=== PATIENT | female | born 1980 | race African-American/Black ===

== ENCOUNTER 2018-01-19 18:31 | Emergency (ER) | payer OTHER ==
[2018-01-19] MEDS ORDERED: Albuterol/Ipratropium NEB.SOL* Albuterol 2.5 MG/Ipratropium 0.5 MG 3 ML INH ONE (19:18)
[2018-01-19] MEDS ORDERED: Albuterol/Ipratropium NEB.SOL* Albuterol 2.5 MG/Ipratropium 0.5 MG 3 ML ONE (19:26)
--- NOTE | 2018-01-19 19:52 | RAD ---
HISTORY: Inhalational exposure, difficulty breathing COMPARISONS: None VIEWS: 4: Frontal dual-energy and lateral views of the chest. FINDINGS: CARDIOMEDIASTINAL SILHOUETTE: The cardiomediastinal silhouette is normal. GRISELDA: The griselda are normal. PLEURA: The costophrenic angles are sharp. No pleural abnormalities are noted. LUNG PARENCHYMA: The lungs are clear. ABDOMEN: The upper abdomen is clear. There is no subphrenic gas. BONES AND SOFT TISSUES: No bone or soft tissue abnormalities are noted. OTHER: None. IMPRESSION: NO ACTIVE CARDIOPULMONARY DISEASE.
[2018-01-19 20:06] VITALS: BP 115/84
--- NOTE | 2018-01-20 06:15 | ED ---
Beto Monet Nikita, scribed for Sigifredo Han MD on 01/19/18 at 1922 . Respiratory - HPI Summary HPI Summary: This patient is a 37 year old M presenting to ED with a chief complaint of difficulty breathing since accidentally inhaling bleach at 1630 while cleaning. The CC is described as cannot breathe deep down. The patient rates the pain 0/ 10 in severity. Symptoms aggravated by nothing. Symptoms alleviated by fresh air. Patient reports CP. Patient denies sore throat, and N/V. Patient denies hx of COPD or asthma. - History of Current Complaint Chief Complaint: EDChemNuclearExpose Stated Complaint: INHALED CHEMICALS/DIFF BREATHING Time Seen by Provider: 01/19/18 19:01 Hx Obtained From: Patient Onset/Duration: Sudden Onset, Lasting Hours, Still Present Current Severity: None Pain Intensity: 0 Aggravating Factor(s): Nothing Alleviating Factor(s): Other - fresh air Associated Signs and Symptoms: Chest Pain - denies sore throat, and N/V - Allergy/Home Medications Allergies/Adverse Reactions: Allergies Allergy/AdvReac Type Severity Reaction Status Date / Time No Known Allergies Allergy Verified 01/19/18 18:38 PMH/Surg Hx/FS Hx/Imm Hx Endocrine/Hematology History: Denies: Hx Diabetes Cardiovascular History: Denies: Hx Coronary Artery Disease, Hx Hypertension Respiratory History: Denies: Hx Asthma, Hx Chronic Obstructive Pulmonary Disease (COPD) Infectious Disease History: No Infectious Disease History: Denies: Traveled Outside the [place] in Last 30 Days - Social History Alcohol Use: None Substance Use Type: Reports: None Smoking Status (MU): Never Smoked Tobacco Review of Systems Negative: Sore Throat Positive: Chest Pain Positive: Other - difficulty breathing Negative: Vomiting, Nausea All Other Systems Reviewed And Are Negative: Yes Physical Exam - Summary Physical Exam Summary: Appearance: Well appearing, no pain distress Skin: warm, dry, reflects adequate perfusion Head/face: normal Eyes: EOMI, TOMA ENT: normal, mucous membranes moist Neck: supple, non-tender Respiratory: CTA, breath sounds present Cardiovascular: RRR, pulses symmetrical Abdomen: non-tender, soft Bowel: present Musculoskeletal: normal, strength/ROM intact Neuro: normal, sensory motor intact, A&Ox3 Triage Information Reviewed: Yes Vital Signs On Initial Exam: Initial Vitals Temp Pulse Resp BP Pulse Ox 98.7 F 94 16 115/89 99 01/19/18 18:35 01/19/18 18:35 01/19/18 18:35 01/19/18 18:35 01/19/18 18:35 Vital Signs Reviewed: Yes Diagnostics - Vital Signs Vital Signs Temp Pulse Resp BP Pulse Ox 01/19/18 18:35 98.7 F 94 16 115/89 99 - Laboratory Lab Statement: Any lab studies that have been ordered have been reviewed, and results considered in the medical decision making process. - Radiology CXR Radiology Interpretation Completed By: ED Physician - CXR is normal. Re-Evaluation - Re-Evaluation First Eval Re-Evaluation Time: 19:52 Comment: Patient feels better. Disposition - Course Course Of Treatment: min exposure to bleach. Lungs clear and sats well. No pneumonitis on xray. [place] better with neb. D/C in good condition. - Differential Dx - Cardiopulmonary Differential Diagnoses - Cardiopulmonary: Other - inhaled fumes - Diagnoses Provider Diagnoses: inhaled fumes Discharge - Discharge Plan Condition: Good Disposition: HOME Patient Education Materials: Pneumonitis (ED) Referrals: Eliecer Tuttle MD [Primary Care Provider] - Additional Instructions: There is no evidence of Pneumonitis as instructions talk about. If you have those symptoms -- shortness of breath increasing, coughing, etc please return to the ER for evaluation. The documentation as recorded by the Beto beckwith Nikita accurately reflects the service I personally performed and the decisions made by me, Sigifredo Han MD.
== END 2018-01-19 20:05 | disposition home or self-care (01) ==
LOC: ED 18:31
DX: T54.91XA Toxic effect of unspecified corrosive substance, accidental (unintentional), initial encounter (principal); R07.9 Chest pain, unspecified; Y92.89 Other specified places as the place of occurrence of the external cause
CPT/HCPCS: 71046; 99282; A9270-GY

== ENCOUNTER 2018-11-17 19:31 | Emergency (ER) | payer OTHER ==
[2018-11-17 19:41] VITALS: BP 134/72
--- NOTE | 2018-11-17 19:53 | UC ---
Complaint Female HPI - HPI Summary HPI Summary: unprotected sex with a person who has had multiple sex partners 2-3 weeks ago wants std testing---patient is not accepting of education regarding cc. she dienies symptoms and states she is having her periord now-I did continue to explain to her that she will need follow up testing in 3-5weeks - History Of Current Complaint Chief Complaint: UCSTDScreening Stated Complaint: STI TESTING Time Seen by Provider: 11/17/18 19:32 Hx Obtained From: Patient Hx Last Menstrual Period: 11/17/18 ?: No Onset/Duration: Sudden Onset Timing: Constant Pain Intensity: 0 Pain Scale Used: 0-10 Numeric Character: Not Applicable Aggravating Factor(s): Nothing Alleviating Factor(s): Nothing Associated Signs And Symptoms: Negative: Genital Swelling, Genital Blisters - Allergies/Home Medications Allergies/Adverse Reactions: Allergies Allergy/AdvReac Type Severity Reaction Status Date / Time No Known Allergies Allergy Verified 11/17/18 19:35 Home Medications: Home Medications Phendimetrazine Tartrate 35 mg PO TID 11/17/18 [History Confirmed 11/17/18] PMH/Surg Hx/FS Hx/Imm Hx Previously Healthy: Yes - Surgical History Surgical History: Yes Surgery Procedure, Year, and Place: gallbladder removal 2006 - Family History Known Family History: Positive: None - Social History Occupation: Employed Full-time Lives: With Family Alcohol Use: Occasionally Substance Use Type: None Smoking Status (MU): Heavy Every Day Tobacco Smoker Amount Used/How Often: 2PP/week Review of Systems All Other Systems Reviewed And Are Negative: Yes Constitutional: Positive: Negative Skin: Positive: Negative Eyes: Positive: Negative ENT: Positive: Negative Respiratory: Positive: Negative Cardiovascular: Positive: Negative Gastrointestinal: Positive: Negative Genitourinary: Positive: Negative Motor: Positive: Negative Neurovascular: Positive: Negative Musculoskeletal: Positive: Negative Neurological: Positive: Negative Psychological: Positive: Negative Is Patient Immunocompromised?: No Physical Exam Triage Information Reviewed: Yes Appearance: Well-Appearing, No Pain Distress, Well-Nourished Vital Signs: Initial Vital Signs Temp 98.4 F 11/17/18 19:36 Pulse 101 11/17/18 19:36 Resp 18 11/17/18 19:36 BP 134/72 11/17/18 19:36 Pulse Ox 100 11/17/18 19:36 Vital Signs Reviewed: Yes Eye Exam: Normal Eyes: Positive: Conjunctiva Clear ENT Exam: Normal ENT: Positive: Normal ENT inspection, Hearing grossly normal. Negative: Trismus , Muffled voice, Hoarse voice Dental Exam: Normal Neck exam: Normal Neck: Positive: Supple, Nontender Respiratory Exam: Normal Respiratory: Positive: No respiratory distress, No accessory muscle use Cardiovascular Exam: Normal Musculoskeletal Exam: Normal Musculoskeletal: Positive: Strength Intact, ROM Intact Neurological Exam: Normal Neurological: Positive: Alert, Muscle Tone Normal Psychological Exam: Normal Skin Exam: Normal Complaint Female Dx - Course Course Of Treatment: will test for syphyllis, gonnorrhea, chylmadia, hepatitis, b &c and hiv- patient wishes not to have a pelvic exam-- - Differential Dx/Diagnosis Provider Diagnosis: Encounter for assessment of STD exposure Discharge - Sign-Out/Discharge Documenting (check all that apply): Patient Departure All imaging exams completed and their final reports reviewed: No Studies - Discharge Plan Condition: Stable Disposition: HOME Patient Education Materials: Safe Sex (ED) Referrals: Eliecer Tuttle MD [Primary Care Provider] [facility] (for [facility] in 3-5 weeks) - Billing Disposition and Condition Condition: STABLE Disposition: Home
[2018-11-20 10:57] LABS: Hepatitis B Surface Antigen Nonreactive (Nonreactive)
[2018-11-20 11:04] LABS: Hepatitis B Surface AB Not Immune (Immune)
[2018-11-20 11:25] LABS: Hepatitis C Antibody Nonreactive (Nonreactive)
== END 2018-11-17 20:20 | disposition home or self-care (01) ==
LOC: UCEAST 19:31
DX: Z20.2 Contact with and (suspected) exposure to infections with a predominantly sexual mode of transmission (principal)
CPT/HCPCS: 36415; 81003; 86592; 86703; 86706; 86803; 87340; 87491; 87591; 99211; G0463

== ENCOUNTER 2019-02-03 21:01 | Emergency (ER) | payer OTHER ==
[2019-02-03 22:28] LABS: ABS Basophils 0.1 10^3/ul (0-0.2); ABS Eosinophils 0.3 10^3/ul (0-0.6); ABS Lymphocytes 2.4 10^3/ul (1.0-4.8); ABS Monocytes 0.6 10^3/ul (0-0.8); ABS Neutrophils 5.3 10^3/ul (1.5-7.7); ABS Nucleated RBC 0 10^3/ul; Eosinophil % 3.3 %; Hematocrit 42 % (33-41); Hemoglobin 14.3 g/dL (12.0-16.0); Lymphocyte % 28.1 %; Mean Corpuscular HGB Conc 34 g/dL (31-36); Mean Corpuscular Hemoglobin 30 pg (27-31); Mean Corpuscular Volume 90 fL (80-97); Mean Platelet Volume 7.2 fL (7.4-10.4); Nucleated Red Blood Cells % 0; Platelet Count 325 10^3/uL (150-450); Red Blood Count 4.71 10^6 /uL (3.70-4.87); Red Cell Distribution Width 14 % (10.5-15); White Blood Count 8.7 10^3/uL (3.5-10.8)
[2019-02-03 22:48] LABS: Albumin 4.4 g/dL (3.2-5.2); Albumin/Globulin Ratio 1.6 (1-3); BUN/Creatinine Ratio 20.9 (8-20); C Reactive Protein 3.85 mg/L (<8.01); Calcium 9.2 mg/dL (8.6-10.3); EGFR African American 84.2 (>60); EGFR Non-African American 69.6 (>60); Globulin 2.8 g/dL (2-4); Potassium 3.8 mmol/L (3.5-5.0); Total Bilirubin 0.4 mg/dL (0.2-1.0); Total Protein 7.2 g/dL (6.4-8.9)
[2019-02-03 22:55] LABS: HCG Pregnancy 0.77 mIU/mL
[2019-02-04 00:41] LABS: Urine Appearance Cloudy; Urine Bacteria Absent (Absent); Urine Bilirubin Negative (Negative); Urine Blood 2+ (Negative); Urine Color Yellow; Urine Glucose Negative (Negative); Urine Ketones Trace (Negative); Urine Nitrite Negative (Negative); Urine Protein Negative (Negative); Urine Red Blood Cell 3+(>10/hpf) (Absent); Urine Specific Gravity 1.028 (1.010-1.030); Urine Squamous Epithelial Cell Present (Absent); Urine Urobilinogen Positive (Negative); Urine White Blood Cell Trace(0-5/hpf) (Absent)
--- NOTE | 2019-02-04 00:58 | ED ---
GI/ HPI - HPI Summary HPI Summary: 38 year old female presents with left lower quadrant pain for the past day. States her period has been lasting longer than normal. She states she's been bleeding for over a week. Denies any dizziness. She did have nausea but that resolved. No vomiting. No urinary symptoms. No flank pain. Denies any abnormal vaginal discharge. Denies any chance of pelvic infection. no diarrhea. no history of diverticulitis. has been constipated. - History of Current Complaint Chief Complaint: EDAbdPain Time Seen by Provider: 02/03/19 23:47 Stated Complaint: PRESSURE IN STOMACH- PER PT Hx Last Menstrual Period: 11/17/18 Pain Intensity: 3 - Allergy/Home Medications Allergies/Adverse Reactions: Allergies Allergy/AdvReac Type Severity Reaction Status Date / Time No Known Allergies Allergy Verified 11/17/18 19:35 Home Medications: Home Medications NK [No Home Medications Reported] 02/04/19 [History Confirmed 02/04/19] PMH/Surg Hx/FS Hx/Imm Hx Endocrine/Hematology History: Denies: Hx Diabetes Cardiovascular History: Denies: Hx Coronary Artery Disease, Hx Hypertension Respiratory History: Reports: Hx Asthma Denies: Hx Chronic Obstructive Pulmonary Disease (COPD) - Surgical History Surgery Procedure, Year, and Place: gallbladder removal 2006 Infectious Disease History: No Infectious Disease History: Denies: Traveled Outside the [place] in Last 30 Days - Family History Known Family History: Positive: None - Social History Alcohol Use: Occasionally Substance Use Type: Reports: None Smoking Status (MU): Heavy Every Day Tobacco Smoker Amount Used/How Often: 2PP/week Review of Systems Negative: Fever Negative: Chest Pain Negative: Shortness Of Breath Positive: Abdominal Pain. Negative: Vomiting, Diarrhea, Nausea Negative: dysuria All Other Systems Reviewed And Are Negative: Yes Physical Exam Triage Information Reviewed: Yes Vital Signs On Initial Exam: Initial Vitals Temp Pulse Resp BP Pulse Ox 98.3 F 104 18 126/74 100 02/03/19 21:06 02/03/19 21:06 02/03/19 21:06 02/03/19 21:06 02/03/19 21:06 Vital Signs Reviewed: Yes Appearance: Positive: Well-Appearing Skin: Positive: Warm, Dry Head/Face: Positive: Normal Head/Face Inspection Eyes: Positive: Normal, Conjunctiva Clear ENT: Positive: Pharynx normal Respiratory/Lung Sounds: Positive: Clear to Auscultation, Breath Sounds Present Cardiovascular: Positive: Normal, RRR Abdomen Description: Positive: Soft, Other: - mild tenderness LLQ, no rebound Bowel Sounds: Positive: Absent Musculoskeletal: Positive: Normal Neurological: Positive: Normal Psychiatric: Positive: Normal Diagnostics - Vital Signs Vital Signs Temp Pulse Resp BP Pulse Ox 02/03/19 21:06 98.3 F 104 18 126/74 100 - Laboratory Lab Results: Lab Results 02/03/19 02/03/19 02/03/19 Range/Units 22:21 22:21 22:21 WBC 8.7 (3.5-10.8) 10^3/uL RBC 4.71 (3.70-4.87) 10^6 /uL Hgb 14.3 (12.0-16.0) g/dL Hct 42 H (33-41) % MCV 90 (80-97) fL MCH 30 (27-31) pg MCHC 34 (31-36) g/dL RDW 14 (10.5-15) % Plt Count 325 (150-450) 10^3/uL MPV 7.2 L (7.4-10.4) fL Neut % (Auto) 60.6 % Lymph % (Auto) 28.1 % [place] % (Auto) 6.8 % Eos % (Auto) 3.3 % Baso % (Auto) 1.2 % Absolute Neuts (auto) 5.3 (1.5-7.7) 10^3/ul Absolute Lymphs (auto) 2.4 (1.0-4.8) 10^3/ul Absolute Monos (auto) 0.6 (0-0.8) 10^3/ul Absolute Eos (auto) 0.3 (0-0.6) 10^3/ul Absolute Basos (auto) 0.1 (0-0.2) 10^3/ul Absolute Nucleated RBC 0 10^3/ul Nucleated RBC % 0 Sodium 138 (135-145) mmol/L Potassium 3.8 (3.5-5.0) mmol/L Chloride 106 (101-111) mmol/L Carbon Dioxide 26 (22-32) mmol/L Anion Gap 6 (2-11) mmol/L BUN 19 (6-24) mg/dL Creatinine 0.91 (0.51-0.95) mg/dL Est GFR ( Amer) 84.2 (>60) Est GFR (Non-Af Amer) 69.6 (>60) BUN/Creatinine Ratio 20.9 H (8-20) Glucose 92 (70-100) mg/dL Lactic Acid 0.8 (0.5-2.0) mmol/L Calcium 9.2 (8.6-10.3) mg/dL Total Bilirubin 0.40 (0.2-1.0) mg/dL AST 15 (13-39) U/L ALT 11 (7-52) U/L Alkaline Phosphatase 96 (34-104) U/L C-Reactive Protein 3.85 (<8.01) mg/L Total Protein 7.2 (6.4-8.9) g/dL Albumin 4.4 (3.2-5.2) g/dL Globulin 2.8 (2-4) g/dL Albumin/Globulin Ratio 1.6 (1-3) Lipase 62 (11.0-82.0) U/L Beta HCG, Quant 0.77 mIU/mL Urine Color Urine Appearance Urine pH (5-9) Ur Specific [place] (1.010-1.030) Urine Protein (Negative) Urine Ketones (Negative) Urine Blood (Negative) Urine Nitrate (Negative) Urine Bilirubin (Negative) Urine Urobilinogen (Negative) Ur Leukocyte Esterase (Negative) Urine WBC (Auto) (Absent) Urine RBC (Auto) (Absent) Ur Squamous Epith Cells (Absent) Urine Bacteria (Absent) Urine Glucose (Negative) 02/04/19 Range/Units 00:30 WBC (3.5-10.8) 10^3/uL RBC (3.70-4.87) 10^6 /uL Hgb (12.0-16.0) g/dL Hct (33-41) % MCV (80-97) fL MCH (27-31) pg MCHC (31-36) g/dL RDW (10.5-15) % Plt Count (150-450) 10^3/uL MPV (7.4-10.4) fL Neut % (Auto) % Lymph % (Auto) % [place] % (Auto) % Eos % (Auto) % Baso % (Auto) % Absolute Neuts (auto) (1.5-7.7) 10^3/ul Absolute Lymphs (auto) (1.0-4.8) 10^3/ul Absolute Monos (auto) (0-0.8) 10^3/ul Absolute Eos (auto) (0-0.6) 10^3/ul Absolute Basos (auto) (0-0.2) 10^3/ul Absolute Nucleated RBC 10^3/ul Nucleated RBC % Sodium (135-145) mmol/L Potassium (3.5-5.0) mmol/L Chloride (101-111) mmol/L Carbon Dioxide (22-32) mmol/L Anion Gap (2-11) mmol/L BUN (6-24) mg/dL Creatinine (0.51-0.95) mg/dL Est GFR ( Amer) (>60) Est GFR (Non-Af Amer) (>60) BUN/Creatinine Ratio (8-20) Glucose (70-100) mg/dL Lactic Acid (0.5-2.0) mmol/L Calcium (8.6-10.3) mg/dL Total Bilirubin (0.2-1.0) mg/dL AST (13-39) U/L ALT (7-52) U/L Alkaline Phosphatase (34-104) U/L C-Reactive Protein (<8.01) mg/L Total Protein (6.4-8.9) g/dL Albumin (3.2-5.2) g/dL Globulin (2-4) g/dL Albumin/Globulin Ratio (1-3) Lipase (11.0-82.0) U/L Beta HCG, Quant mIU/mL Urine Color Yellow Urine Appearance Cloudy Urine pH 6.0 (5-9) Ur Specific [place] 1.028 (1.010-1.030) Urine Protein Negative (Negative) Urine Ketones Trace A (Negative) Urine Blood 2+ A (Negative) Urine Nitrate Negative (Negative) Urine Bilirubin Negative (Negative) Urine Urobilinogen Positive A (Negative) Ur Leukocyte Esterase Trace A (Negative) Urine WBC (Auto) Trace(0-5/hpf) (Absent) Urine RBC (Auto) 3+(>10/hpf) A (Absent) Ur Squamous Epith Cells Present A (Absent) Urine Bacteria Absent (Absent) Urine Glucose Negative (Negative) Result Diagrams: 02/03/19 22:21 02/03/19 22:21 Lab Statement: Any lab studies that have been ordered have been reviewed, and results considered in the medical decision making process. - Ultrasound No standard instances Ultrasound Interpretation Completed By: Radiologist Summary of Ultrasound Findings: IMPRESSION: 1. Leiomyomatous uterus. 2. Sonographically normal ovaries. GIGU Course/Dx - Course Course Of Treatment: 38 year old female presents with left lower quadrant pain for the past day. States her period has been lasting longer than normal. She states she's been bleeding for over a week. Denies any dizziness. She did have nausea but that resolved. No vomiting. No urinary symptoms. No flank pain. Denies any abnormal vaginal discharge. Denies any chance of pelvic infection. On exam minimal tenderness left lower quadrant. wbc normal. CRP normal. Urine likely contaminant. Ultrasound shows leiomomatous uterus. told to follow up with bread icer. patient understand and agrees with plan. - Diagnoses Differential Diagnoses - Female: Ovarian Cyst, STD, Urinary Tract Infection Provider Diagnoses: Abdominal pain Discharge - Sign-Out/Discharge Documenting (check all that apply): Patient Departure Patient Received Moderate/Deep Sedation with Procedure: No - Discharge Plan Condition: Good Disposition: HOME Patient Education Materials: Pelvic Pain in Women (ED) Referrals: Eliecer Tuttle MD [Primary Care Provider] - Additional Instructions: Take Tylenol or ibuprofen every 6 hours for pain apply heat to area Follow up with obgyn Return to ED if develop any new or worsening symptoms - Billing Disposition and Condition Condition: GOOD Disposition: Home
[2019-02-04 01:32] VITALS: BP 113/78
== END 2019-02-04 01:30 | disposition home or self-care (01) ==
LOC: ED 21:01
DX: R10.32 Left lower quadrant pain (principal); R10.2 Pelvic and perineal pain; F17.210 Nicotine dependence, cigarettes, uncomplicated; D25.9 Leiomyoma of uterus, unspecified
CPT/HCPCS: 36415; 76830; 80053; 81003; 81015; 83605; 83690; 84702; 85025; 86140; 87086; 99282

== ENCOUNTER 2019-08-03 17:57 | Emergency (ER) | payer OTHER ==
[2019-08-03 18:27] VITALS: BP 110/72
--- NOTE | 2019-08-03 18:43 | UC ---
Complaint Female HPI - HPI Summary HPI Summary: Vaginal bleeding assoc w/ back pain which started today. Had menses 1 wk ago. Last intercourse 10/2018. Not on control. of note her mom had menopause at age 40. - History Of Current Complaint Chief Complaint: UCGU Stated Complaint: VAGINAL BLEEDING, BACK PAIN Time Seen by Provider: 08/03/19 18:37 Hx Obtained From: Patient Hx Last Menstrual Period: 1 week ago Pain Intensity: 6 Pain Scale Used: 0-10 Numeric Aggravating Factor(s): Nothing Alleviating Factor(s): Nothing - Allergies/Home Medications Allergies/Adverse Reactions: Allergies Allergy/AdvReac Type Severity Reaction Status Date / Time No Known Allergies Allergy Verified 08/03/19 18:27 Home Medications: Home Medications Flaxseed Oil [Holden-3 Flaxseed Oil] 1,000 mg PO DAILY 08/03/19 [History Confirmed 08/03/19] Phendimetrazine Tartrate [Phendimetrazine Tartrate ER] 1 tab PO DAILY 08/03/19 [ History Confirmed 08/03/19] PMH/Surg Hx/FS Hx/Imm Hx Previously Healthy: Yes - Surgical History Surgical History: Yes Surgery Procedure, Year, and Place: gallbladder removal 2006 - Family History Known Family History: Positive: None - Social History Alcohol Use: Rare Substance Use Type: None Smoking Status (MU): Heavy Every Day Tobacco Smoker Amount Used/How Often: 2PP/week Review of Systems All Other Systems Reviewed And Are Negative: Yes Constitutional: Negative: Fever, Fatigue Skin: Negative: Bruising ENT: Negative: Epistaxis Genitourinary: Positive: Abnormal Bleeding. Negative: Dysuria, Vaginal/Penile Burning, Vaginal/Penile Itching, Vaginal/Penile Discharge Musculoskeletal: Positive: Arthralgia - back pain Physical Exam Triage Information Reviewed: Yes Appearance: Well-Appearing Vital Signs: Initial Vital Signs Temp 98 F 08/03/19 18:23 Pulse 81 08/03/19 18:23 Resp 14 08/03/19 18:23 BP 110/72 08/03/19 18:23 Pulse Ox 100 08/03/19 18:23 Vital Signs Reviewed: Yes Respiratory: Positive: No respiratory distress Pelvic Exam: Positive: External Exam Normal, Active Bleeding - pinkish discharge from cervical opening. Negative: No Cerv. Motion Tender, Cervicitis, Lesions, Ulcers Complaint Female Dx - Course Course Of Treatment: Vaginal spotting started today 1 week after already having period. ON exam there was pinkish discharge but no obvious vaginal wall source but did see cervical opening where pink discharge was coming from. Urine hcg neg and will await chlam/nicki results. could be an element of premenopause although maybe not. She could also have a thyroid imbalance causing this which I asked her to go to pcp to cont. w/u. Do not think back pain connected to this but advised to take tylenol or nsaids for this. - Differential Dx/Diagnosis Differential Diagnosis/HQI/PQRI: Pelvic Inflammatory Disease, Sexually Transmitted Disease, Urinary Tract Infection, Other Provider Diagnosis: Vaginal spotting Discharge ED - Sign-Out/Discharge Documenting (check all that apply): Patient Departure All imaging exams completed and their final reports reviewed: No Studies - Discharge Plan Condition: Good Disposition: HOME Patient Education Materials: Dysfunctional Uterine Bleeding (ED) Referrals: Eliecer Tuttle MD [Primary Care Provider] - Additional Instructions: Please follow up with your primary care to possibly get worked up for thyroid issues or perhaps get ultrasound. - Billing Disposition and Condition Condition: GOOD Disposition: Home
[2019-08-05 12:35] LABS: Chlamydia trachomatis NAA Negative (Negative); Neisseria gonorrhoeae (GC) NAA Negative (Negative)
== END 2019-08-03 19:28 | disposition home or self-care (01) ==
LOC: UCEAST 17:57
DX: M54.9 Dorsalgia, unspecified (principal); N89.8 Other specified noninflammatory disorders of vagina; F17.210 Nicotine dependence, cigarettes, uncomplicated
CPT/HCPCS: 84702; 87491; 87591; 99212; G0463

== ENCOUNTER 2019-08-04 13:40 | Emergency (ER) | payer OTHER ==
[2019-08-04 16:01] VITALS: BP 124/48
[2019-08-04 17:19] LABS: ABS Basophils 0.1 10^3/ul (0-0.2); ABS Eosinophils 0.2 10^3/ul (0-0.6); ABS Lymphocytes 2.2 10^3/ul (1.0-4.8); ABS Monocytes 0.3 10^3/ul (0-0.8); ABS Neutrophils 2.6 10^3/ul (1.5-7.7); Eosinophil % 3.6 %; Hematocrit 44 % (35-47); Hemoglobin 14.7 g/dL (12.0-16.0); Lymphocyte % 40.7 %; Mean Corpuscular HGB Conc 34 g/dL (31-36); Mean Corpuscular Hemoglobin 30 pg (27-31); Mean Corpuscular Volume 90 fL (80-97); Mean Platelet Volume 7.4 fL (7.4-10.4); Nucleated Red Blood Cells % 0.1; Platelet Count 244 10^3/uL (150-450); Red Blood Count 4.86 10^6 /uL (3.70-4.87); Red Cell Distribution Width 14 % (10-15); White Blood Count 5.4 10^3/uL (3.5-10.8)
[2019-08-04 17:39] LABS: INR 0.94 (0.82-1.09)
[2019-08-04 17:44] LABS: Albumin 4.5 g/dL (3.2-5.2); Albumin/Globulin Ratio 1.7 (1-3); BUN/Creatinine Ratio 11.3 (8-20); Calcium 9.4 mg/dL (8.6-10.3); EGFR African American 112.1 (>60); EGFR Non-African American 92.6 (>60); Globulin 2.7 g/dL (2-4); Potassium 3.8 mmol/L (3.5-5.0); Total Bilirubin 0.7 mg/dL (0.2-1.0); Total Protein 7.2 g/dL (6.4-8.9)
== END 2019-08-04 17:03 | disposition left against medical advice (07) ==
LOC: ED 13:40
DX: Z53.21 Procedure and treatment not carried out due to patient leaving prior to being seen by health care provider (principal); Z79.899 Other long term (current) drug therapy
CPT/HCPCS: 36415; 80053; 85025; 85610; 99282

== ENCOUNTER 2019-08-05 12:23 | Emergency (ER) | payer OTHER ==
--- NOTE | 2019-08-05 13:55 | ED ---
GI/ HPI - HPI Summary HPI Summary: 38-year-old female presents with lower abdominal pain today. States she had vaginal bleeding last week that has resolved. Feels similar to her period. She also states that she had neck pain yesterday that resolved. No chest pain or shortness breath. States she has some numbness in her arms yesterday. The numbness has resolved. denies any headache. has full ROM of neck and arms. Denies any fevers. No urinary symptoms. No abnormal vaginal discharge. No diarrhea constipation. Denies any nausea vomiting. - History of Current Complaint Chief Complaint: EDAbdPain Time Seen by Provider: 08/05/19 13:18 Stated Complaint: CRAMPING IN STOMACH PER PT Hx Last Menstrual Period: 1 week ago Pain Intensity: 3 - Allergy/Home Medications Allergies/Adverse Reactions: Allergies Allergy/AdvReac Type Severity Reaction Status Date / Time No Known Allergies Allergy Verified 08/04/19 13:48 Home Medications: Home Medications L.acidoph,Paracasei, B.lactis [Probiotic] 1 each PO DAILY 08/05/19 [History Confirmed 08/05/19] PMH/Surg Hx/FS Hx/Imm Hx Endocrine/Hematology History: Denies: Hx Diabetes, Hx Thyroid Disease Cardiovascular History: Denies: Hx Coronary Artery Disease, Hx Hypertension Respiratory History: Reports: Hx Asthma Denies: Hx Chronic Obstructive Pulmonary Disease (COPD) GI History: Denies: Hx Ulcer - Surgical History Surgery Procedure, Year, and Place: gallbladder removal 2006 Infectious Disease History: No Infectious Disease History: Denies: Hx Hepatitis, Hx Human Immunodeficiency Virus (HIV), Traveled Outside the [place] in Last 30 Days - Family History Known Family History: Positive: None - Social History Alcohol Use: Rare Substance Use Type: Reports: None Smoking Status (MU): Heavy Every Day Tobacco Smoker Amount Used/How Often: 2PP/week Review of Systems Negative: Fever Negative: Chest Pain Negative: Shortness Of Breath Positive: Abdominal Pain Positive: Myalgia - neck pain resolved All Other Systems Reviewed And Are Negative: Yes Physical Exam Triage Information Reviewed: Yes Vital Signs On Initial Exam: Initial Vitals Temp Pulse Resp BP Pulse Ox 97.3 F 87 18 112/84 96 08/05/19 12:27 08/05/19 12:27 08/05/19 12:27 08/05/19 12:27 08/05/19 12:27 Vital Signs Reviewed: Yes Appearance: Positive: Well-Appearing Skin: Positive: Warm, Dry Head/Face: Positive: Normal Head/Face Inspection Eyes: Positive: Normal, Conjunctiva Clear ENT: Positive: Pharynx normal Neck: Positive: Other: - nontender neck, full ROM neck Respiratory/Lung Sounds: Positive: Clear to Auscultation, Breath Sounds Present Cardiovascular: Positive: Normal, RRR Abdomen Description: Positive: Soft, Other: - tenderness mild LLQ Bowel Sounds: Positive: Present Musculoskeletal: Positive: Strength/ROM Intact - upper extremity, Other - good pulses, sensation grossly intact Neurological: Positive: Normal Psychiatric: Positive: Normal Diagnostics - Vital Signs Vital Signs Temp Pulse Resp BP Pulse Ox 08/05/19 12:27 97.3 F 87 18 112/84 96 - Laboratory Result Diagrams: 08/05/19 13:41 Lab Statement: Any lab studies that have been ordered have been reviewed, and results considered in the medical decision making process. - Ultrasound No standard instances Ultrasound Interpretation Completed By: Radiologist Summary of Ultrasound Findings: SUBMUCOSAL FIBROIDS WITH DEFORMATION OF THE ENDOMETRIAL STRIPE.. NO SONOGRAPHIC FEATURES OF TORSION. PLEASE NOTE THAT PARTIAL OR INTERMITTENT TORSION MAY BE SONOGRAPHICALLY NORMAL GIGU Course/Dx - Course Course Of Treatment: 38-year-old female presents with lower abdominal pain today. States she had vaginal bleeding last week that has resolved. Feels similar to her period. She also states that she had neck pain yesterday that resolved. No chest pain or shortness breath. States she has some numbness in her arms yesterday. The numbness has resolved. denies any headache. has full ROM of neck and arms. Denies any fevers. No urinary symptoms. No abnormal vaginal discharge. No diarrhea constipation. Denies any nausea vomiting. On exam has full range of motion neck and arms. Neurovascular intact. Mild left lower quadrant tenderness. had lab work done yesterday that was normal but that patient did not stay for results. wbc today is normal. tsh normal. u/s shows fibriods. as symptoms are occasionally discussed should follow up with director of solutions architecture if symptoms persist. discussed take ibuprofen. patient does not have neck pain or arm numbness now so likely was muscular. told follow up with primary. patient understand and agrees with plan. - Diagnoses Differential Diagnoses - Female: Ovarian Cyst, Urinary Tract Infection, Other - dysmenorrhea Provider Diagnoses: Abdominal pain, Neck pain, Fibroid Discharge ED - Sign-Out/Discharge Documenting (check all that apply): Patient Departure Patient Received Moderate/Deep Sedation with Procedure: No - Discharge Plan Condition: Good Disposition: HOME Patient Education Materials: Pelvic Pain in Women (ED) Forms: *Work Release Referrals: Eliecer Tuttle MD [Primary Care Provider] - Maite Haley MD [Medical Doctor] - Additional Instructions: take ibuprofen for pain every 6 hours apply heat Follow up with director of solutions architecture or primary Return to ED if develop any new or worsening symptoms - Billing Disposition and Condition Condition: GOOD Disposition: Home - Attestation Statements Provider Attestation: I was available for consult. This patient was seen by the HUSAM. The patient was not presented to, seen by, or examined by me. Joshua Bush MD
[2019-08-05 13:56] LABS: ABS Basophils 0.1 10^3/ul (0-0.2); ABS Eosinophils 0.2 10^3/ul (0-0.6); ABS Lymphocytes 1.7 10^3/ul (1.0-4.8); ABS Monocytes 0.3 10^3/ul (0-0.8); ABS Neutrophils 2.2 10^3/ul (1.5-7.7); Eosinophil % 3.5 %; Hematocrit 42 % (35-47); Lymphocyte % 37.8 %; Mean Corpuscular HGB Conc 34 g/dL (31-36); Mean Corpuscular Hemoglobin 30 pg (27-31); Mean Corpuscular Volume 90 fL (80-97); Mean Platelet Volume 7.9 fL (7.4-10.4); Nucleated Red Blood Cells % 0.1; Platelet Count 230 10^3/uL (150-450); Red Cell Distribution Width 14 % (10-15); White Blood Count 4.5 10^3/uL (3.5-10.8)
[2019-08-05 14:21] LABS: HCG Pregnancy 0.6 mIU/mL
[2019-08-05 14:29] LABS: C Reactive Protein 1.61 mg/L (<8.01); Magnesium 1.9 mg/dL (1.9-2.7)
[2019-08-05 14:30] LABS: TSH (Thyroid Stimulating Horm) 0.91 mcIU/mL (0.34-5.60)
[2019-08-05 14:49] LABS: Urine Appearance Cloudy; Urine Bilirubin Negative (Negative); Urine Blood Negative (Negative); Urine Color Yellow; Urine Glucose Negative (Negative); Urine Ketones Trace (Negative); Urine Nitrite Negative (Negative); Urine Protein Negative (Negative); Urine Specific Gravity 1.027 (1.010-1.030); Urine Urobilinogen Negative (Negative)
[2019-08-05 16:13] VITALS: BP 129/84
== END 2019-08-05 16:13 | disposition home or self-care (01) ==
LOC: ED 12:23
DX: R10.32 Left lower quadrant pain (principal); D25.0 Submucous leiomyoma of uterus; M54.2 Cervicalgia; Z90.49 Acquired absence of other specified parts of digestive tract; F17.200 Nicotine dependence, unspecified, uncomplicated
CPT/HCPCS: 36415; 76830; 81003; 83735; 84443; 84702; 85025; 86140; 99282

== ENCOUNTER 2024-10-30 08:37 | Observation (INO) ==
[2024-10-30] MEDS ORDERED: Clindamycin 900 MG/50 **NS BAG 900 MG/50 ML BAG ONE (10:16)
[2024-10-30] MEDS ORDERED: Ondansetron 4 mg VIAL 2 MG/ML 2 ml VIAL ONE (10:16)
[2024-10-30] MEDS ORDERED: oxyCODONE SR 10 mg TAB ONE (10:16)
[2024-10-30] MEDS ORDERED: Scopolamine 1 mg/72hr PATCH ONE (10:16)
[2024-10-30 10:25] LABS: ABS Basophils 0.1 10^3/uL (0.0-0.1); ABS Eosinophils 0.4 10^3/uL (0.0-0.5); ABS Lymphocytes 0.8 10^3/uL (1.0-4.8); ABS Monocytes 0.3 10^3/uL (0.0-0.9); ABS Neutrophils 3.8 10^3/uL (1.5-7.6); ABS Nucleated RBC 0.01 10^3/ul; Eosinophil % 7.7 %; Hematocrit 37.1 % (35-45); Hemoglobin 12.2 g/dL (11.5-14.3); Lymphocyte % 13.9 %; Mean Corpuscular Hemoglobin 26.8 pg (27-33); Mean Corpuscular Volume 81.4 fL (80-97); Mean Platelet Volume 8.1 fL (7.5-11.2); Nucleated Red Blood Cells % 0.1 %/100WBC (0.0-0.8); Platelet Count 287 10^3/uL (150-450); Red Blood Count 4.56 10^6/uL (3.63-4.92); Red Cell Distribution Width 15.2 % (12-17); White Blood Count 5.4 10^3/uL (3.8-11.8)
[2024-10-30 10:38] LABS: Activated Partial Thrombo Time 26.8 seconds (26.0-38.0)
[2024-10-30 11:00] LABS: Anion Gap 7 mmol/L (2-16); Blood Urea Nitrogen 13 mg/dL (6-24); CO2 Carbon Dioxide 25 mmol/L (22-32); Calcium 9.3 mg/dL (8.6-10.3); Chloride 105 mmol/L (101-111); Creatinine, Serum 0.68 mg/dL (0.51-0.95); Glucose 110 mg/dL (70-100); Potassium 3.9 mmol/L (3.5-5.0); Sodium 137 mmol/L (135-145); eGFR CKD-EPI 110.8 (>60)
[2024-10-30 11:07] LABS: HCG Pregnancy < 0.60 mIU/mL
[2024-10-30] MEDS: Dexamethasone IV 4 MG/ML VIAL 1 ml VIAL ONE (13:46)
[2024-10-30] MEDS: Nitro 2% OINT (Nitroglycerin) 1 INCH/PAK ONE (13:46)
[2024-10-30] MEDS ORDERED: Heparin 2 UNITS/ML 1000 mls 1,000 ML IV ONE (13:50)
[2024-10-30] MEDS ORDERED: VERAPAMIL 2.5 MG/ML 2 ML VIAL ** 5 mg/2 ml ONE ×2 (13:50→15:54)
[2024-10-30] MEDS ORDERED: Heparin 2 UNITS/ML IVPREMIX 1,000 UNIT/500 ML BAG IV ONE (13:50)
[2024-10-30] MEDS ORDERED: Heparin 1,000 UNIT/ML 10 ml (10,000 UNITS) CATHLAB/DIALYSIS ONE (13:50)
[2024-10-30] MEDS ORDERED: Midazolam 5 mg/5 ml VIAL 1 mg/ml 5 ml VIAL (5 mg) ONE (13:50)
[2024-10-30] MEDS ORDERED: fentaNYL 100 mcg/2 ml 50 MCG/ML VIAL ONE (13:50)
[2024-10-30] MEDS ORDERED: nitroGLYCERIN DRIP 25,000 MCG/250 ML BTL ONE (13:51)
[2024-10-30] MEDS ORDERED: Lidocaine 1% VIAL 10 MG/ML 30 ML VIAL ONE (14:08)
[2024-10-30] MEDS ORDERED: Iohexol 350 (CONTRAST) 100 ML PAK IV ONE (14:10)
[2024-10-30] MEDS ORDERED: Flumazenil 0.5 mg/5 ml 0.1 MG/ML 5 ml VIAL IV PRN (14:18)
[2024-10-30] MEDS ORDERED: Naloxone 0.4 mg VIAL 0.4 mg/ml 1 ml VIAL IV PUSH PRN (14:18)
[2024-10-30] MEDS ORDERED: HYDROmorphone 0.5 MG/0.5 ML SYRINGE ONE (16:00)
[2024-10-30] MEDS ORDERED: HYDROmorphone 1 MG/1 ML SYRINGE ONE ×2 (16:21→18:19)
[2024-10-30] MEDS: NS 0.9% 1,000 ML IV SCH (16:25)
[2024-10-30] MEDS: HYDROmorphone 1 MG/1 ML SYRINGE IV PRN (16:25)
[2024-10-30] MEDS: Midazolam 10 mg/10 ml VIAL 1 mg/ml 10 ml VIAL (10 mg) IV SLOW PU ONE (16:33)
[2024-10-30] MEDS: fentaNYL 100 mcg/2 ml 50 MCG/ML VIAL IV SLOW PU ONE (16:33)
[2024-10-30] MEDS: Ondansetron 4 mg VIAL 2 MG/ML 2 ml VIAL IV SCH (21:37)
[2024-10-31] MEDS: Ketorolac 10 mg TAB (NF) PO SCH (08:57)
[2024-10-31 10:09] VITALS: BP 96/61
[2024-10-31] MEDS: HYDROcodone/ACETAMIN 5/325 mg TAB PO PRN (10:54)
== END 2024-10-31 11:25 | disposition home or self-care (01) ==
LOC: CHICATH 08:37 → SSU 08:37
PROVIDERS: ADMIT Hospitalist; ATTEND Hospitalist
PROC: ANG.UFE (2024-10-30 10:00)